=== PATIENT | female | born 1990 | race Caucasian/White ===

== ENCOUNTER 2017-09-05 20:11 | Emergency (ER) | payer BC ==
[~2017-09-05] VITALS: Ht 165.1 cm; Wt 80.0 kg
[2017-09-05 20:18] VITALS: BP 127/87; PULSE 77; RESP 20; TEMP 97.2; O2SAT 98
[2017-09-05] MEDS ORDERED: diphenhydrAMINE HCL 50 MG/ML VIAL IVP ONE (20:30)
[2017-09-05] MEDS ORDERED: PROCHLORPERAZINE INJ 10 MG/2 ML VIAL IV PUSH ONE (20:30)
[2017-09-05] MEDS ORDERED: SODIUM CHLOR 0.9% 1000 ML INJ 1,000 ML IV ONE (20:30)
--- NOTE | 2017-09-05 20:47 | RADRPT ---
EXAM DATE/TIME: 09/05/2017 20:36 [place] COMPARISON: No previous studies available for comparison. INDICATIONS : Headache. RADIATION DOSE: 56.35 CTDIvol (mGy) MEDICAL HISTORY : None SURGICAL HISTORY : None. ENCOUNTER: Initial ACUITY: 1 day PAIN SCALE: 10/10 LOCATION: cranial TECHNIQUE: Multiple contiguous axial images were obtained of the head. Using automated exposure control and adj ustment of the mA and/or kV according to patient size, radiation dose was kept as low as reasonably a chievable to obtain optimal diagnostic quality images. DICOM format image data is available electro nically for review and comparison. FINDINGS: CEREBRUM: The ventricles are normal for age. No evidence of midline shift, mass lesion, hemorrhage or acute in farction. No extra-axial fluid collections are seen. POSTERIOR FOSSA: The cerebellum and brainstem are intact. The 4th ventricle is midline. The cerebellopontine angle i s unremarkable. EXTRACRANIAL: The visualized portion of the orbits is intact. SKULL: The calvaria is intact. No evidence of skull fracture. CONCLUSION: 1. No acute intracranial abnormality. Anish Malagon MD on September 05, 2017 at 20:43 Board Certified Radiologist. This report was verified electronically.
[2017-09-05] MEDS ORDERED: KETOROLAC TROMETHAMINE 30 MG/ML (IVP) VIAL IV PUSH ONE (21:00)
--- NOTE | 2017-09-05 21:03 | PD ---
HPI Chief Complaint: Headache Time Seen by Provider: 20:26 Travel History International Travel<30 days: No Contact w/Intl Traveler<30days: No Traveled to known affect area: No History of Present Illness HPI 27-year-old female that presents to the ED for evaluation of headache. Per patient she has had a headache all day. Per patient she does have a history migraine headaches but she does not get them frequently. She usually gets a headache and she takes Advil or medication [id number] with relief. Per patient this time she has not improved. Per patient she went took a nap to see if it will help but he has not. She feels nauseous and congestion. She denies any fevers chills or sweats. No chest pain or shortness of breath. No urinary or bowel movement issues. No numbness, tingling, weakness. Per patient she has not had a headache like this in the past. Per patient headaches 8 out of 10. No thunderclap-like pain. Per patient headache is a little bit better now. Light makes her worse. States that it feels more like a pressure. No other medical issues at this time. Takes control. No recent travel. No head injury. No blood thinner use. No history of aneurysms. [facility] Past Medical History Medical History: Denies Significant Hx Diminished Hearing: No Tetanus Vaccination: Unknown Influenza Vaccination: No ?: Not LMP: 08/12/2017 Past Surgical History Appendectomy: Yes Social History Alcohol Use: Yes (socially) Tobacco Use: No Substance Use: No Allergies-Medications (Allergen,Severity, Reaction): Coded Allergies: No Known Allergies (Unverified , 09/05/17) Review of Systems Except as stated in HPI: all other systems reviewed are Neg Physical Exam Narrative GENERAL: SKIN: Warm and dry. HEAD: Atraumatic. Normocephalic. EYES: Pupils equal and round. No scleral icterus. No injection or drainage. ENT: No nasal bleeding or discharge. Mucous membranes pink and moist. Tongue is midline. No uvula deviation. NECK: Trachea midline. No JVD. CARDIOVASCULAR: Regular rate and rhythm. No murmurs, S3, S4. RESPIRATORY: No accessory muscle use. Clear to auscultation. Breath sounds equal bilaterally. GASTROINTESTINAL: Abdomen soft, non-tender, nondistended. Hepatic and splenic margins not palpable. MUSCULOSKELETAL: Extremities without clubbing, cyanosis, or edema. No obvious deformities. Full range of motion of the upper and lower extremities bilaterally. 2+ pulses bilaterally. Sensation intact bilaterally. NEUROLOGICAL: Awake and alert. No obvious cranial nerve deficits. Motor grossly within normal limits. Five out of 5 muscle strength in the arms and legs. Normal speech. PSYCHIATRIC: Appropriate mood and affect; insight and judgment normal. Data Data Last Documented VS Vital Signs Date Time Temp Pulse Resp B/P (MAP) Pulse Ox O2 Delivery O2 Flow Rate FiO2 09/05/17 20:18 97.2 77 20 127/87 (100) [address] Brain W/O Iv Contrast(Rout) (09/05/17 20:30) Iv Access Insert/Monitor (09/05/17 20:30) Diphenhydramine Inj (Benadryl Inj) (09/05/17 20:30) Sodium Chlor 0.9% 1000 Ml Inj (Ns 1000 M (09/05/17 20:30) Prochlorperazine Inj (Compazine Inj) (09/05/17 20:30) Ketorolac Inj (Toradol Inj) (09/05/17 21:00) Ed Discharge Order (09/05/17 21:22) MDM Medical Decision Making Medical Screen Exam Complete: Yes Emergency Medical Condition: Yes Medical Record Reviewed: Yes Interpretation(s) Last Impressions Head CT 09/05/172029 Signed Impressions: Service Date/Time: Tuesday, September 05, 2017 20:36 - CONCLUSION: 1. No acute intracranial abnormality. Anish Malagon MD Differential Diagnosis Headache versus tension headache versus migraine headache versus less likely ICH Narrative Course 27-year-old female that presents to the ED for evaluation of headache. Patient was probably examined and was found to have signs and symptoms consistent with headache. No obvious red flags. Patient has never had a scan of her head. The recommend CT to rule out any sign of acute disease as patient does state that this headache feels different from her previous. CT was done and was negative. Patient was given IV pain medications as well as fluids. Patient was reassessed and feels improved. Patient was given a prescription for Compazine. Follow-up with PCP. See ED if worsening symptoms. Diagnosis Primary Impression: Migraine headache Qualified Codes: G43.901 - Migraine, unspecified, not intractable, with status migrainosus Patient Instructions: General Instructions Departure Forms: Tests/Procedures, Work Release Enter return to work date: September 07, 2017 Additional Instructions: Take medication as prescribed. Follow-up with PCP. See ED if worsening symptoms. Med/Other Pt SpecificInfo: Prescription(s) given Scripts Prochlorperazine Maleate (Prochlorperazine Maleate) 10 Mg Tab 10 MG PO Q6H Y for HEADACHE, #10 TAB 0 Refills Prov: Joel Osuna MD 09/05/17 Disposition: 01 DISCHARGE HOME Condition: Stable Kwesi Mcbride Sep 05, 2017 21:03
[2017-09-05] MEDS ORDERED: PROC10TA PO (21:25)
== END 2017-09-05 21:42 | disposition home or self-care (01) ==
LOC: NEPE 20:11
DX: G43.901 Migraine, unspecified, not intractable, with status migrainosus (principal)
CPT/HCPCS: 70450; 96361; 96374; 96375; 99284; J0780; J1200; J7030